=== PATIENT | female | born 1985 | race Caucasian/White ===

== ENCOUNTER 2021-01-30 16:51 | Outpatient (REF) | payer MEDICAID, SELFPAY ==
[2021-01-30 21:52] LABS: Vitamin B12 885 pg/mL (193-986)
[2021-02-01 10:29] LABS: Lyme Ab w Rflx to Lyme Confirm Negative (Negative)
== END 2021-01-30 16:52 | disposition home or self-care (01) ==
LOC: LBN 16:51
PROVIDERS: PCP Internal Medicine; Visit Provider Family Medicine
DX: R51.9 Headache, unspecified (principal); R42 Dizziness and giddiness
CPT/HCPCS: 82607; 86618

== ENCOUNTER 2021-06-20 15:32 | Outpatient (REF) | payer MEDICAID, SELFPAY ==
[2021-06-22 11:17] LABS: COVID-19 RT-PCR UVMMC Result Negative (Negative)
== END 2021-06-20 15:33 | disposition home or self-care (01) ==
LOC: LBN 15:32
PROVIDERS: PCP Internal Medicine; Visit Provider Physician Assistant Medical
DX: Z20.822 Contact with and (suspected) exposure to COVID-19 (principal); R09.89 Other specified symptoms and signs involving the circulatory and respiratory systems
CPT/HCPCS: U0003

== ENCOUNTER 2021-08-10 18:28 | Outpatient (REF) | payer MEDICAID, SELFPAY ==
[2021-08-10 14:12] LABS: HCT 41.2 % (36.0-46.0); HGB 13.5 g/dL (11.2-15.7); MCH 29.4 pg (27.0-33.0); MCHC 32.8 % (32.0-36.0); MCV 89.8 fL (80-95); MPV 10.7 fL (8.0-11.0); Platelet Count 175 10^3/uL (130-400); RBC 4.59 10^6/uL (3.93-5.22); RDW 13.6 % (11.7-14.6); RDW-SD 44.9 fL; WBC 6.45 10^3/uL (4.4-10.8)
[2021-08-10 15:01] LABS: Anion Gap 9.8 mmol/L (3-11); BUN 11 mg/dL (7-18); CO2 26.2 mmol/L (21.0-32.0); CREATININE 0.9 mg/dL (0.55-1.02); Calcium 9.6 mg/dL (8.5-10.1); Chloride 104 mmol/L (98-107); FREE T4 0.81 ng/dL (0.76-1.46); Glucose 122 mg/dL (74-106); Potassium 3.9 mmol/L (3.5-5.1); Sodium 140 mmol/L (136-145); TSH 0.78 uIU/mL (0.36-3.74)
== END 2021-08-10 18:29 | disposition home or self-care (01) ==
LOC: NCHCN 18:28
PROVIDERS: PCP Internal Medicine; Visit Provider Physician Assistant
DX: R42 Dizziness and giddiness (principal)
CPT/HCPCS: 80048; 85027; 84439; 84443

== ENCOUNTER 2021-10-16 17:20 | Outpatient (REF) | payer MEDICAID, SELFPAY ==
[2021-10-18 11:22] LABS: COVID-19 RT-PCR UVMMC Result Negative (Negative)
== END 2021-10-16 17:21 | disposition home or self-care (01) ==
LOC: LBN 17:20
PROVIDERS: PCP Internal Medicine; Visit Provider Nurse Practitioner Family
DX: R09.89 Other specified symptoms and signs involving the circulatory and respiratory systems (principal); Z20.822 Contact with and (suspected) exposure to COVID-19
CPT/HCPCS: U0003

== ENCOUNTER 2022-12-09 18:51 | Emergency (ER) | payer MEDICAID, SELFPAY ==
[2022-12-09 19:05] VITALS: BP 118/74; PULSE 57; RESP 18; TEMP 37.1; O2SAT 100
--- NOTE | 2022-12-09 19:15 | DI.CT_ITS ---
Exam(s) CT HEAD CERVICAL SPINE WO EXAM: CT HEAD CERVICAL SPINE WO CLINICAL HISTORY: pain s/p fall. TECHNIQUE: Imaging Protocol: Axial computed tomography images with coronal and sagittal reformatted images were created and reviewed COMPARISON: No exams were available for comparison FINDINGS: BRAIN: There are no skull fractures nor fluid in the visualized paranasal sinuses. There is no evidence of intracranial hemorrhage, mass effect, or shift of midline structures. There are no extra-axial fluid collections. The ventricles are not enlarged or shifted and there is no blo od within the ventricular system nor within the basal cisterns. CERVICAL SPINE: There is no evidence of fracture nor listhesis. No significant prevertebral soft tissue swelling. There is no significant facet joint malalignment. No significant osseous lesions evident. IMPRESSION: No acute intracranial findings on this noninfused CT scan of the brain. No evidence of cervical spine fracture, malalignment, nor acute compromise of the cervical spinal can al. RADIATION DOSE DELIVERED: 1,123.99mGy.cm Total DLP DATA REPOSITORY: All CT scans at this facility are submitted to the National Radiology Data Registry (NRDR) Dose Index Registry (DIR) with the [employer] ([employer]). RADIATION OPTIMIZATION: All CT scans at this facility use at least one of these dose optimization te chniques: automated exposure control; mA and/or kV adjustment per patient size (includes targeted exa ms where dose is matched to clinical indication); or iterative reconstruction.
--- NOTE | 2022-12-09 19:15 | DI.RAD_ITS ---
Exam(s) XR FEMUR LT EXAM: XR FEMUR LT CLINICAL HISTORY: pain. TECHNIQUE: 2D digital imaging was performed. COMPARISON: No exams were available for comparison FINDINGS: Two views No evidence of fracture of the hip and femur. Bone density normal. No osseous lesions. No radiopaq ue foreign body IMPRESSION: No osseous findings in the femur. DATA REPOSITORY: RADIATION DOSE DELIVERED:
--- NOTE | 2022-12-09 19:20 | ED.GENADUL_ITS ---
Discharge Plan Disposition Patient Disposition: Home Condition: Stable Discharge Details Chief Complaint: Fall/Non TraumaCriteria Clinical Impression: Fall, Blunt head trauma Primary Care Provider: [facility] ED Provider: Noah Parada Discharge Instructions Additional Instructions: Your cat scan of your head and neck did not show concerning findings and your xray of your left leg was also normal if pains continue in a week follow up with your primary care provider if you feel more ill, have severe worsening pain or new pain such as chest pain return to the emergency department Medical Decision Making 37 yo female who denies chronic medical problems comes in after a fall down stairs. She states she was going down stairs at her apartment and it was raining and she slipped landing on her back and fell down about 7 stairs. Denies loc or preceding symptoms such as lightheadedness or chest pain or dyspnea. She has a headache, left lateral neck pain, and left thigh pain since the fall. Denies chest pain, abdomen pain or back pain. She is caox4 speaking clearly in no distress on arrival without signigicant traumatic injuries on the external head or face. She has no midline neck tendernss, no chest or abdomen tenderness and no T/L spine tenderness. She has a 3cm contusion of the left lateral mid femur, no bony tenderness full rom of the hip, knee ankle and foot with intact sensat ion and pulses. Given mechanism and her headache, neck pain and thigh pain will obtain ct head/cspine and left femur xray and reassess imaging unremarkable, pt stable with no new pain or tenderness elsewhere. She is stable for d/c, advised to f/u with pcp if pain continues next week and return precautions given Differential Diagnosis Differential Diagnosis: tbi, concussion, fracture, contusion Imaging Data Radiologic Study: Attestation: I personally reviewed and interpreted this imaging study as follows: Imaging: CT Scan Radiologist's impression: no acute findings Radiologic Study #2: Attestation: I personally reviewed and interpreted this imaging study as follows: Imaging: X-Ray Radiologist's impression: no acute findings HPI General Mode of arrival: ambulatory . Date/Time Provider Initiated Documentation: 12/09/22 19:11 . Limitations to Documentation: no limitations . Information obtained by: patient . History of Present Illness 37 year old F presents to the emergency department with the chief complaint of fall down stairs, described as moderate, Patient started experiencing this hour(s) (2) and it has been constant. No relieving factors improve symptom(s), No exacerbating factors reported . Patient did receive the following treatments prior to arrival, none General Stated Complaint: Fall/Non TraumaCriteria TARIK: 3 Review of Systems All systems reviewed & are unremarkable except as noted in HPI and below Constitutional Constitutional: Denies chills, Denies fever(s) and Denies weakness Eyes Eyes: Denies loss of vision Cardiovascular Cardiovascular: Denies chest pain and Denies dyspnea Respiratory Respiratory: Denies cough and Denies dyspnea Gastrointestinal Gastrointestinal: Denies abdominal pain, Denies nausea and Denies vomiting Genitourinary Genitourinary: Denies dysuria Neurologic Neurologic: Denies loss of vision and Denies weakness PFSH All Active Problems (Updated 12/09/22 @ 20:52 by Noah Parada MD) Fall (Acute) Blunt head trauma (Acute) Social History Smoking risk assessment performed?: No Alcohol Intake: current Alcohol Intake frequency: a few times a week Drug use: Occasionally Substance use type: marijuana Details: last smoked this morning Do you feel safe at home: Yes Do you feel safe in your relationship?: Yes Exam Const General: no acute distress Orientation: alert HENMT Head: normal to inspection Ears: external ears normal General nose exam: external nose normal Mouth: moist mucous membranes Eyes General: appearance normal, both eyes and all related structures Neck Neck: normal visual inspection Chest Chest: normal inspection of the chest and no crepitus Resp Effort & Inspection: normal respiratory effort and able to speak in complete sentences Cardio Rate: regular rate GI Palpation: soft and nontender Back/Spine/Pelvis Back: no CVA tenderness Thoracic/Lumbar Spine: No thoracic spinal tenderness and No lumbar spinal tenderness Skin General skin exam: no rashes or lesions noted Neuro General: patient alert and patient oriented x3 Extrem General: full ROM and capillary refill normal Psych Mental Status: mental status grossly normal Course Vital Signs Vital signs: Vital Signs Temperature 37.1 C 12/09/22 19:05 Pulse 57 L 12/09/22 19:05 Respiratory Rate 18 12/09/22 19:05 Blood Pressure 118/74 12/09/22 19:05 Pulse Oximetry 100 12/09/22 19:05 Temperature 37.1 C 12/09/22 19:05 Temperature Source Oral 12/09/22 19:05 Pulse 57 L 12/09/22 19:05 Respiratory Rate 18 12/09/22 19:05 Respiratory Effort Normal, Non-Labored 12/09/22 19:08 Blood Pressure 118/74 12/09/22 19:05 Blood Pressure Position Sitting 12/09/22 19:05 Pulse Oximetry 100 12/09/22 19:05 Oxygen Delivery Method Room Air 12/09/22 19:05 Oxygen Flow Rate 0 12/09/22 19:05
[2022-12-09] MEDS: Acetaminophen 500 MG TAB 1000 MG PO (19:27)
--- NOTE | 2022-12-09 20:08 | DI.VRAD_ITS ---
PROCEDURE INFORMATION: Exam: CT Head Without Contrast Exam date and time: 12/09/2022 7:52 PM Age: 37 years old Clinical indication: Injury or trauma; Blunt trauma (contusions or hematomas); Consciousness not specified; Injury date: 12/09/22; Injury details: Fall, hit head, pain TECHNIQUE: Imaging protocol: Computed tomography of the head without contrast. Radiation optimization: All CT scans at this facility use at least one of these dose optimization techniques: automated exposure control; mA and/or kV adjustment per patient size (includes targeted exams where dose is matched to clinical indication); or iterative reconstruction. COMPARISON: No relevant prior studies available. FINDINGS: Brain: Mild volume loss No hemorrhage. Unremarkable white matter. No mass effect. Cerebral ventricles: No ventriculomegaly. Paranasal sinuses: Visualized sinuses are unremarkable. No fluid levels. Mastoid air cells: Visualized mastoid air cells are well aerated. Bones/joints: Unremarkable. No acute fracture. Soft tissues: Unremarkable. IMPRESSION: No acute intracranial hemorrhage PROCEDURE INFORMATION: Exam: CT Cervical Spine Without Contrast Exam date and time: 12/09/2022 7:52 PM Age: 37 years old Clinical indication: Injury or trauma; Blunt trauma (contusions or hematomas); Consciousness not specified; Injury date: 12/09/22; Injury details: Fall, hit head, pain TECHNIQUE: Imaging protocol: Computed tomography of the cervical spine without contrast. Radiation optimization: All CT scans at this facility use at least one of these dose optimization techniques: automated exposure control; mA and/or kV adjustment per patient size (includes targeted exams where dose is matched to clinical indication); or iterative reconstruction. COMPARISON: No relevant prior studies available. FINDINGS: Bones/joints: No acute fracture. Mild lordosis straightening. No significant disc bulge or herniation. No severe spinal canal stenosis. No significant neural foraminal narrowing. Lungs: Lung apices are normal. Soft tissues: Unremarkable. IMPRESSION: No acute findings. Straightening of the cervical lordosis may be positional or related to muscle spasm. Dictated and Authenticated by: Delmar Borja MD. Ordering:SINCERE aZmora MD
--- NOTE | 2022-12-09 20:35 | DI.VRAD_ITS ---
PROCEDURE INFORMATION: Exam: XR Left Femur Exam date and time: 12/09/2022 7:58 PM Age: 37 years old Clinical indication: Pain; Other: Femur TECHNIQUE: Imaging protocol: Radiologic exam of the left femur. Views: 2 views. COMPARISON: No relevant prior studies available. FINDINGS: Bones/joints: No fracture or other osseous abnormality. Hip joint and knee joint are grossly intact. Soft tissues: Unremarkable. IMPRESSION: Normal femur. Dictated and Authenticated by: Louis Madera MD. Ordering:SINCERE Zamora MD
[2022-12-09 20:55] VITALS: BP 137/68; PULSE 72; RESP 16; O2SAT 99
== END 2022-12-09 21:00 | disposition home or self-care (01) ==
PROVIDERS: Emergency Provider Emergency Medicine; PCP Internal Medicine
DX: S09.90XA Unspecified injury of head, initial encounter (principal); S70.12XA Contusion of left thigh, initial encounter; W10.8XXA Fall (on) (from) other stairs and steps, initial encounter; Y93.01 Activity, walking, marching and hiking; Y92.018 Other place in single-family (private) house as the place of occurrence of the external cause; Y99.9 Unspecified external cause status
CPT/HCPCS: 73552; 81025; 99283; 70450; 72125